=== PATIENT | female | born 1950 | race African-American/Black ===

== ENCOUNTER 2023-06-11 06:15 | Inpatient (IN) | payer OTHER ==
[2023-06-11] MEDS ORDERED: ACETAMINOPHEN INJECTION 100 ML IVPB ONE ×2 (08:29→18:24)
[2023-06-11] MEDS: ACETAMINOPHEN 1000 MG/100 ML BAG IVPB ONE (09:02)
[2023-06-11 09:11] LABS: BASO % 0.6 % (0-2.0); EOS % 3.5 % (0-4.5); HEMATOCRIT 22.9 % (32.4-45.2); HEMOGLOBIN 7.1 GM/dL (10.7-15.3); LYMPH % 20.7 % (8-40); MCH 30.9 pg (25.7-33.7); MCHC 30.9 g/dl (32.0-36.0); MEAN PLT VOLUME 8.8 fl (7.5-11.1); MONO % 5.5 % (3.8-10.2); NEUT % 69.7 % (42.8-82.8); PLATELET COUNT 437 10^3/uL (134-434); RBC 2.29 M/mm3 (3.60-5.2); RDW 19.8 % (11.6-15.6); WHITE BLOOD COUNT 13.5 K/mm3 (4.0-10.0)
[2023-06-11 09:11] LABS: VENOUS BASE EXCESS 4.8 mmol/L (-2-2); VENOUS O2 SATURATION 65.2 % (70-80); VENOUS PCO2 72.6 mmHg (38-52)
[2023-06-11 09:13] LABS: VENOUS PH 7.27 (7.310-7.410)
[2023-06-11 09:17] LABS: INR 1.32 (0.83-1.09); PROTHROMBIN TIME (PATIENT) 15.3 SEC (9.7-13.0)
[2023-06-11 09:20] LABS: ACTIVATED PTT 34.3 SECONDS (25.2-36.5)
[2023-06-11 09:36] LABS: CHLORIDE 110 mmol/L (98-107); POTASSIUM 5.3 mmol/L (3.5-5.1); SODIUM 146 mmol/L (136-145)
[2023-06-11 09:38] LABS: ALBUMIN 1.9 g/dl (3.4-5.0); ANION GAP -2 mmol/L (4-13); CALCIUM 7.9 mg/dL (8.5-10.1); CO2 37 mmol/L (21-32)
[2023-06-11 09:39] LABS: BLOOD UREA NITROGEN 51.1 mg/dL (7-18); GLUCOSE,RANDOM 180 mg/dL (74-106)
[2023-06-11 09:41] LABS: CREATININE 1.1 mg/dL (0.55-1.3); SGPT/ALT 262 U/L (13-61)
[2023-06-11 09:42] LABS: SGOT/AST 314 U/L (15-37)
[2023-06-11 09:43] LABS: BILIRUBIN,TOTAL 0.2 mg/dL (0.2-1); TOT PROT 7.4 g/dl (6.4-8.2)
[2023-06-11 09:44] LABS: ALK PHOS 94 U/L (45-117)
[2023-06-11] MEDS ORDERED: VANCOMYCIN/WATER 1250 MG 1,250 MG/250 ML BAG IVPB ONE (11:48)
[2023-06-11] MEDS ORDERED: CEFTRIAXONE 1 GM/50 ML BAG ONE (11:49)
[2023-06-11] MEDS: CEFTRIAXONE 1,000 MG in DEXTROSE 5%-WATER - 50 ML IVPB ONE (11:56)
[2023-06-11 12:12] LABS: EPI CELLS 20 /uL (0-25.1); HYALINE CASTS 0 /uL (0-3.1); URINE APPEARANCE TURBID; URINE BACTERIA >9,000 /uL (0-1359); URINE BILIRUBIN NEGATIVE (NEGATIVE); URINE COLOR YELLOW; URINE GLUCOSE (UA) NEGATIVE (NEGATIVE); URINE KETONE NEGATIVE (NEGATIVE); URINE LEUK ESTERASE 3+ (NEGATIVE); URINE NITRITE NEGATIVE (NEGATIVE); URINE PROTEIN 1+ (NEGATIVE); URINE UROBILINOGEN 0.2 mg/dL (0.2-1.0); URINE WBC 7366 /uL (0-25.8)
[2023-06-11] MEDS: VANCOMYCIN/WATER 1250 MG 1,250 MG/250 ML BAG IVPB ONE (12:22)
[2023-06-11 12:33] LABS: URINE RBC 87.5 /uL (0-23.9); YEAST PRESENT (NEGATIVE)
[2023-06-11] MEDS: SODIUM CHLORIDE 0.45% 1,000 ML IV SCH (14:31)
[2023-06-11] MEDS ORDERED: PIPERACILLIN/TAZOB 3.375 GM 3.375 GM/50 ML BAG IVPB ONE ×2 (14:32→18:25)
[2023-06-11] MEDS: PIPERACILLIN/TAZOB 3.375 GM 3.375 GM in DEXTROSE 5%-WATER - 50 ML IVPB SCH (14:35)
[2023-06-11] MEDS ORDERED: PIPERACILLIN/TAZOB 3.375 GM 3.375 GM in DEXTROSE 5%-WATER - 50 ML IVPB SCH (15:00)
[2023-06-11] MEDS: SODIUM CHLORIDE 1,000 ML IV STA ×3 (16:17→18:48)
[2023-06-11] MEDS: ACETAMINOPHEN 1000 MG/100 ML BAG IVPB PRN (18:29)
[2023-06-11] MEDS ORDERED: NOREPINEPHRINE BITARTRATE 4,000 MCG in DEXTROSE 5%-WATER - 496 ML IV SCH (19:45)
[2023-06-11] MEDS ORDERED: NOREPINEPHRINE BITARTRATE 4 MG/4 ML ML IV ONE (19:45)
[2023-06-11] MEDS: NOREPINEPHRINE BITARTRATE 4,000 MCG in DEXTROSE 5%-WATER - 496 ML IV SCH ×2 (19:59→21:00)
[2023-06-11 20:05] LABS: HEMATOCRIT 15.9 % (32.4-45.2); MCH 30.2 pg (25.7-33.7); MCHC 30.3 g/dl (32.0-36.0); MEAN CELL VOLUME 99.7 fl (80-96); MEAN PLT VOLUME 8.9 fl (7.5-11.1); PLATELET COUNT 248 10^3/uL (134-434); RBC 1.59 M/mm3 (3.60-5.2); RDW 19.6 % (11.6-15.6); WHITE BLOOD COUNT 7.5 K/mm3 (4.0-10.0)
[2023-06-11 20:11] LABS: HEMOGLOBIN 4.8 GM/dL (10.7-15.3)
[2023-06-11 20:23] LABS: CHLORIDE 117 mmol/L (98-107); POTASSIUM 4.5 mmol/L (3.5-5.1); SODIUM 149 mmol/L (136-145)
[2023-06-11 20:26] LABS: ANION GAP 1 mmol/L (4-13); BLOOD UREA NITROGEN 54.1 mg/dL (7-18); CO2 30 mmol/L (21-32); GLUCOSE,RANDOM 72 mg/dL (74-106); MAGNESIUM 2.2 mg/dL (1.8-2.4)
[2023-06-11 20:29] LABS: SGOT/AST 149 U/L (15-37); SGPT/ALT 151 U/L (13-61)
[2023-06-11 20:31] LABS: BILIRUBIN,TOTAL 0.2 mg/dL (0.2-1)
[2023-06-11 20:42] LABS: TOTAL IRON BINDING CAPACITY 112 ug/dL (250-450)
[2023-06-11 20:57] LABS: ALBUMIN 1.4 g/dl (3.4-5.0); ALK PHOS 54 U/L (45-117); CALCIUM 6.7 mg/dL (8.5-10.1); TOT PROT 5.3 g/dl (6.4-8.2)
[2023-06-11] MEDS: MIDAZOLAM HCL 2 MG/2 ML SINGLE DOSE VIAL IVPUSH ONE (21:00)
[2023-06-11] MEDS ORDERED: MIDAZOLAM HCL 2 MG/2 ML SINGLE DOSE VIAL ONE (21:20)
[2023-06-11] MEDS ORDERED: SODIUM CHLORIDE 0.45% 1,000 ML IV SCH (21:32)
[2023-06-11 21:40] LABS: ARTERIAL BLOOD GAS BASE EXCESS -0.2 mmol/L (-2-2); ARTERIAL BLOOD GAS pH 7.355 (7.350-7.450)
[2023-06-11 21:43] LABS: ALLENS TEST POSITIVE; PT'S TEMP 99.5; VENT MODE A/C
[2023-06-11 21:44] LABS: VENT RATE 20
[2023-06-11] MEDS: ALBUMIN HUMAN 5% 250 ML IV SOLUTION IV ONE (22:03)
[2023-06-11] MEDS: CHLORHEXIDINE GLUCONATE 4% CLEANSER FOR DECOLONIZATION TP SCH (22:05)
[2023-06-11] MEDS: MUPIROCIN 2% TOPICAL OINTMENT FOR DECOLONIZATION NS SCH (22:05)
[2023-06-11] MEDS: PANTOPRAZOLE SODIUM 40 MG VIAL IVPUSH SCH (23:30)
[2023-06-12 01:09] LABS: BASO % 0.4 % (0-2.0); EOS % 2.6 % (0-4.5); HEMATOCRIT 21.9 % (32.4-45.2); LYMPH % 17.6 % (8-40); MCH 30.7 pg (25.7-33.7); MCHC 31.8 g/dl (32.0-36.0); MEAN CELL VOLUME 96.7 fl (80-96); MEAN PLT VOLUME 9.1 fl (7.5-11.1); MONO % 5.6 % (3.8-10.2); NEUT % 73.8 % (42.8-82.8); PLATELET COUNT 277 10^3/uL (134-434); RBC 2.27 M/mm3 (3.60-5.2); WHITE BLOOD COUNT 8.6 K/mm3 (4.0-10.0)
[2023-06-12] MEDS: PIPERACILLIN/TAZOB 3.375 GM 3.375 GM in DEXTROSE 5%-WATER - 50 ML IVPB SCH (02:21)
[2023-06-12 07:11] LABS: BASO % 0.4 % (0-2.0); EOS % 3.6 % (0-4.5); HEMATOCRIT 21.1 % (32.4-45.2); MCH 30.6 pg (25.7-33.7); MCHC 31.7 g/dl (32.0-36.0); MEAN CELL VOLUME 96.6 fl (80-96); MEAN PLT VOLUME 9.2 fl (7.5-11.1); MONO % 6.2 % (3.8-10.2); NEUT % 73.8 % (42.8-82.8); PLATELET COUNT 261 10^3/uL (134-434); RBC 2.19 M/mm3 (3.60-5.2); RDW 19.3 % (11.6-15.6)
[2023-06-12 07:30] LABS: HEMOGLOBIN 6.7 GM/dL (10.7-15.3)
[2023-06-12 07:32] LABS: BLOOD UREA NITROGEN 43.2 mg/dL (7-18); CALCIUM 7.2 mg/dL (8.5-10.1); MAGNESIUM 2.2 mg/dL (1.8-2.4)
[2023-06-12 07:35] LABS: CREATININE 0.8 mg/dL (0.55-1.3); PHOSPHOROUS 2.3 mg/dL (2.5-4.9)
[2023-06-12 07:37] LABS: BILIRUBIN,TOTAL 0.4 mg/dL (0.2-1); TOT PROT 5.4 g/dl (6.4-8.2)
[2023-06-12 07:44] LABS: POTASSIUM 4.5 mmol/L (3.5-5.1)
[2023-06-12 08:33] LABS: ALBUMIN 1.8 g/dl (3.4-5.0)
[2023-06-12] MEDS: NAPH,MB-DB/K PH,MBDB POWDER PACKET PO ONE (08:36)
[2023-06-12] MEDS ORDERED: SODIUM CHLORIDE 0.45% 1,000 ML IV SCH (09:15)
[2023-06-12] MEDS: FERROUS SULFATE 220 MG/5 ML ELIXIR PO SCH (09:47)
[2023-06-12] MEDS ORDERED: ASPIRIN COATED 81 MG TABLET.EC PO SCH (10:00)
[2023-06-12] MEDS ORDERED: SODIUM HYPOCHLORITE 0.25%- 473 ML BULK BOTTLE TP SCH (10:00)
[2023-06-12] MEDS ORDERED: FERROUS SULFATE 220 MG/5 ML ELIXIR PO SCH (10:00)
[2023-06-12] MEDS: SODIUM HYPOCHLORITE 0.25%- 473 ML BULK BOTTLE TP SCH (10:14)
[2023-06-12] MEDS: DEXTROSE 5%-WATER - 1,000 ML IV SCH (13:53)
[2023-06-12 15:00] LABS: BASO % 0.4 % (0-2.0); EOS % 4.2 % (0-4.5); HEMATOCRIT 25.1 % (32.4-45.2); HEMOGLOBIN 8.3 GM/dL (10.7-15.3); LYMPH % 15.2 % (8-40); MCHC 33.1 g/dl (32.0-36.0); MEAN CELL VOLUME 93.6 fl (80-96); MEAN PLT VOLUME 9.1 fl (7.5-11.1); MONO % 4.3 % (3.8-10.2); NEUT % 75.9 % (42.8-82.8); PLATELET COUNT 276 10^3/uL (134-434); RBC 2.68 M/mm3 (3.60-5.2); WHITE BLOOD COUNT 8.6 K/mm3 (4.0-10.0)
[2023-06-12 15:30] LABS: POTASSIUM 4.3 mmol/L (3.5-5.1)
[2023-06-12 15:32] LABS: CALCIUM 7.3 mg/dL (8.5-10.1)
[2023-06-12 15:33] LABS: ALBUMIN 1.8 g/dl (3.4-5.0); BLOOD UREA NITROGEN 33.8 mg/dL (7-18)
[2023-06-12 15:36] LABS: CREATININE 0.7 mg/dL (0.55-1.3)
[2023-06-12 15:38] LABS: BILIRUBIN,TOTAL 0.5 mg/dL (0.2-1); TOT PROT 5.4 g/dl (6.4-8.2)
[2023-06-12] MEDS: AMINO ACIDS/PROTEIN HYDROLYS 30 ML LIQUID.PKT GT SCH (17:51)
[2023-06-12] MEDS: ASCORBIC ACID 500 MG TABLET (FP) GT SCH (21:08)
[2023-06-12] MEDS: FENTANYL CITRATE/PF 50 MCG/ML VIAL IVPUSH ONE (23:26)
[2023-06-13] MEDS: ACETAMINOPHEN 1000 MG/100 ML BAG IVPB ONE ×2 (06:00→14:37)
[2023-06-13] MEDS ORDERED: ACETAMINOPHEN INJECTION 100 ML IVPB ONE (06:08)
[2023-06-13 06:38] LABS: HEMATOCRIT 28.3 % (32.4-45.2); HEMOGLOBIN 9.3 GM/dL (10.7-15.3); MCH 30.8 pg (25.7-33.7); MEAN CELL VOLUME 93.4 fl (80-96); MEAN PLT VOLUME 9.2 fl (7.5-11.1); PLATELET COUNT 366 10^3/uL (134-434); RBC 3.03 M/mm3 (3.60-5.2); RDW 19.7 % (11.6-15.6); WHITE BLOOD COUNT 12.2 K/mm3 (4.0-10.0)
[2023-06-13 07:04] LABS: ALBUMIN 1.9 g/dl (3.4-5.0); CALCIUM 7.8 mg/dL (8.5-10.1)
[2023-06-13 07:05] LABS: MAGNESIUM 1.9 mg/dL (1.8-2.4)
[2023-06-13 07:07] LABS: CREATININE 0.6 mg/dL (0.55-1.3); PHOSPHOROUS 1.9 mg/dL (2.5-4.9)
[2023-06-13 07:09] LABS: BILIRUBIN,TOTAL 0.5 mg/dL (0.2-1); TOT PROT 5.8 g/dl (6.4-8.2)
[2023-06-13] MEDS: NAPH,MB-DB/K PH,MBDB POWDER PACKET PO SCH (08:07)
[2023-06-13] MEDS: MULTIVIT-MINERALS ORAL LIQUID GT SCH (09:12)
[2023-06-13] MEDS ORDERED: NAPH,MB-DB/K PH,MBDB POWDER PACKET PO SCH (10:00)
[2023-06-13] MEDS: MAGNESIUM SULF 50% (8.12 MEQ/2 ML-1 GM VIAL) IVPB ONE (11:44)
[2023-06-13] MEDS: VANCOMYCIN/WATER FOR INJ (PEG) 1,000 MG/200 ML BAG IVPB SCH (14:37)
[2023-06-13] MEDS ORDERED: CHLORHEXIDINE GLUCONATE 4% CLEANSER FOR DECOLONIZATION TP SCH (22:00)
[2023-06-13] MEDS ORDERED: MUPIROCIN 2% TOPICAL OINTMENT FOR DECOLONIZATION NS SCH (22:00)
[2023-06-13] MEDS: NAPH,MB-DB/K PH,MBDB POWDER PACKET GT SCH (22:27)
[2023-06-13] MEDS: PANTOPRAZOLE SODIUM 40 MG VIAL IVPUSH SCH (22:27)
[2023-06-13] MEDS: ASCORBIC ACID 500 MG TABLET (FP) GT SCH (22:27)
[2023-06-13] MEDS: ACETAMINOPHEN 1000 MG/100 ML BAG IVPB PRN (23:13)
[2023-06-14] MEDS: BACITRACIN ZINC 15 GM TUBE TOPICAL OINTMENT TP SCH ×2 (01:12→17:55)
[2023-06-14] MEDS: PIPERACILLIN/TAZOB 3.375 GM 3.375 GM in DEXTROSE 5%-WATER - 50 ML IVPB SCH (02:18)
[2023-06-14 08:15] LABS: BASO % 0.1 % (0-2.0); EOS % 2.2 % (0-4.5); HEMATOCRIT 25.6 % (32.4-45.2); HEMOGLOBIN 8.1 GM/dL (10.7-15.3); LYMPH % 8.2 % (8-40); MCH 29.9 pg (25.7-33.7); MCHC 31.8 g/dl (32.0-36.0); MEAN CELL VOLUME 94.1 fl (80-96); MEAN PLT VOLUME 8.8 fl (7.5-11.1); MONO % 3.8 % (3.8-10.2); NEUT % 85.7 % (42.8-82.8); PLATELET COUNT 319 10^3/uL (134-434); RBC 2.73 M/mm3 (3.60-5.2); RDW 19.1 % (11.6-15.6); WHITE BLOOD COUNT 12.7 K/mm3 (4.0-10.0)
[2023-06-14 08:26] LABS: POTASSIUM 4.1 mmol/L (3.5-5.1)
[2023-06-14 08:32] LABS: CALCIUM 7.8 mg/dL (8.5-10.1)
[2023-06-14 08:33] LABS: ALBUMIN 1.6 g/dl (3.4-5.0); BLOOD UREA NITROGEN 26.9 mg/dL (7-18); MAGNESIUM 2.4 mg/dL (1.8-2.4)
[2023-06-14 08:36] LABS: CREATININE 0.6 mg/dL (0.55-1.3); PHOSPHOROUS 2.5 mg/dL (2.5-4.9)
[2023-06-14 08:37] LABS: BILIRUBIN,TOTAL 0.4 mg/dL (0.2-1); TOT PROT 5.4 g/dl (6.4-8.2)
[2023-06-14] MEDS: AMINO ACIDS/PROTEIN HYDROLYS 30 ML LIQUID.PKT GT SCH (09:33)
[2023-06-14] MEDS: MULTIVIT-MINERALS ORAL LIQUID GT SCH (09:33)
[2023-06-14] MEDS: FERROUS SULFATE 220 MG/5 ML ELIXIR GT SCH (09:33)
[2023-06-14] MEDS: SODIUM HYPOCHLORITE 0.25%- 473 ML BULK BOTTLE TP SCH (11:21)
[2023-06-14] MEDS: VANCOMYCIN/WATER FOR INJ (PEG) 1,000 MG/200 ML BAG IVPB SCH (13:35)
[2023-06-14] MEDS: LACTATED RINGERS SOLUTION 1,000 ML/1,000 ML INFUS.BAG IV SCH (14:00)
[2023-06-14] MEDS: TIGECYCLINE 100 MG in DEXTROSE 5%-WATER - 100 ML IVPB ONE (14:39)
[2023-06-14] MEDS: ACETAMINOPHEN 1000 MG/100 ML BAG IVPB PRN (23:00)
[2023-06-15 08:54] LABS: BASO % 0.3 % (0-2.0); EOS % 2.1 % (0-4.5); HEMATOCRIT 25.3 % (32.4-45.2); HEMOGLOBIN 8.2 GM/dL (10.7-15.3); LYMPH % 8.5 % (8-40); MCH 30.5 pg (25.7-33.7); MCHC 32.5 g/dl (32.0-36.0); MEAN CELL VOLUME 94.1 fl (80-96); MEAN PLT VOLUME 8.8 fl (7.5-11.1); MONO % 4.1 % (3.8-10.2); PLATELET COUNT 325 10^3/uL (134-434); RBC 2.69 M/mm3 (3.60-5.2); RDW 19.6 % (11.6-15.6); WHITE BLOOD COUNT 12.9 K/mm3 (4.0-10.0)
[2023-06-15 09:04] LABS: POTASSIUM 4.3 mmol/L (3.5-5.1)
[2023-06-15] MEDS: TAMSULOSIN HCL 0.4 MG CAP PO SCH (09:21)
[2023-06-15] MEDS: PANTOPRAZOLE SODIUM 40 MG VIAL IVPUSH SCH (09:21)
[2023-06-15] MEDS: TIGECYCLINE 50 MG in DEXTROSE 5%-WATER - 100 ML IVPB SCH (09:22)
[2023-06-15 09:33] LABS: BLOOD UREA NITROGEN 28.8 mg/dL (7-18); CALCIUM 7.7 mg/dL (8.5-10.1)
[2023-06-15 09:36] LABS: CREATININE 0.5 mg/dL (0.55-1.3)
[2023-06-15] MEDS: ACETAMINOPHEN 1000 MG/100 ML BAG IVPB PRN (15:21)
[2023-06-16 14:07] VITALS: BMI 27.6
[2023-06-17 10:02] LABS: BASO % 0.3 % (0-2.0); EOS % 3.5 % (0-4.5); HEMATOCRIT 26.2 % (32.4-45.2); HEMOGLOBIN 8.4 GM/dL (10.7-15.3); LYMPH % 14.9 % (8-40); MCH 30.3 pg (25.7-33.7); MCHC 32.1 g/dl (32.0-36.0); MEAN CELL VOLUME 94.4 fl (80-96); MEAN PLT VOLUME 8.6 fl (7.5-11.1); MONO % 7.3 % (3.8-10.2); PLATELET COUNT 376 10^3/uL (134-434); RBC 2.77 M/mm3 (3.60-5.2); RDW 19.3 % (11.6-15.6)
[2023-06-17 10:20] LABS: POTASSIUM 4.7 mmol/L (3.5-5.1)
[2023-06-17 10:25] LABS: CALCIUM 7.9 mg/dL (8.5-10.1)
[2023-06-17 10:26] LABS: ALBUMIN 1.3 g/dl (3.4-5.0); BLOOD UREA NITROGEN 23.8 mg/dL (7-18)
[2023-06-17 10:29] LABS: CREATININE 0.4 mg/dL (0.55-1.3)
[2023-06-17 10:30] LABS: BILIRUBIN,TOTAL 0.2 mg/dL (0.2-1); TOT PROT 5.1 g/dl (6.4-8.2)
[2023-06-17] MEDS: CEFTRIAXONE 1 GM in DEXTROSE 5%-WATER - 50 ML IVPB SCH (13:30)
[2023-06-18 08:41] LABS: HEMATOCRIT 26.6 % (32.4-45.2); HEMOGLOBIN 8.8 GM/dL (10.7-15.3); MCH 31.6 pg (25.7-33.7); MCHC 33.2 g/dl (32.0-36.0); MEAN CELL VOLUME 95.2 fl (80-96); MEAN PLT VOLUME 8.5 fl (7.5-11.1); PLATELET COUNT 396 10^3/uL (134-434); RBC 2.79 M/mm3 (3.60-5.2); RDW 18.9 % (11.6-15.6); WHITE BLOOD COUNT 9.2 K/mm3 (4.0-10.0)
[2023-06-18 08:48] LABS: CALCIUM 8.2 mg/dL (8.5-10.1)
[2023-06-18 08:49] LABS: ALBUMIN 1.4 g/dl (3.4-5.0); BLOOD UREA NITROGEN 21.5 mg/dL (7-18)
[2023-06-18 08:52] LABS: CREATININE 0.4 mg/dL (0.55-1.3)
[2023-06-18 08:53] LABS: BILIRUBIN,TOTAL 0.2 mg/dL (0.2-1); TOT PROT 5.4 g/dl (6.4-8.2)
[2023-06-19 10:16] LABS: BASO % 0.4 % (0-2.0); EOS % 2.3 % (0-4.5); HEMOGLOBIN 8.7 GM/dL (10.7-15.3); LYMPH % 15.9 % (8-40); MCH 30.9 pg (25.7-33.7); MCHC 32.4 g/dl (32.0-36.0); MEAN CELL VOLUME 95.5 fl (80-96); MEAN PLT VOLUME 8.2 fl (7.5-11.1); MONO % 5.7 % (3.8-10.2); NEUT % 75.7 % (42.8-82.8); PLATELET COUNT 376 10^3/uL (134-434); RBC 2.83 M/mm3 (3.60-5.2); RDW 19.1 % (11.6-15.6); WHITE BLOOD COUNT 9.6 K/mm3 (4.0-10.0)
[2023-06-19 10:32] LABS: POTASSIUM 4.8 mmol/L (3.5-5.1)
[2023-06-19 10:33] LABS: CALCIUM 7.9 mg/dL (8.5-10.1)
[2023-06-19 10:37] LABS: CREATININE 0.4 mg/dL (0.55-1.3)
[2023-06-20 18:30] VITALS: BP 144/59; PULSE 74; TEMP 98.3
[2023-06-20 20:16] VITALS: RESP 21
== END 2023-06-20 21:06 | DRG 870 ==
LOC: JER 06:15 → JERBED 11:55 → JICU 20:27 → J5S 06-13 18:08
PROVIDERS: ADMIT Internal Medicine; ATTEND Internal Medicine
PROC: 5A1955Z Respiratory Ventilation, Greater than 96 Consecutive Hours (ICD-10-PCS; principal; 2023-06-11)
PROC: 30233N1 Transfusion of Nonautologous Red Blood Cells into Peripheral Vein, Percutaneous Approach (ICD-10-PCS; 2023-06-11)
DX: A41.89 Other specified sepsis (principal); J69.0 Pneumonitis due to inhalation of food and vomit; L89.154 Pressure ulcer of sacral region, stage 4; R65.21 Severe sepsis with septic shock; N39.0 Urinary tract infection, site not specified; J96.10 Chronic respiratory failure, unspecified whether with hypoxia or hypercapnia; E87.0 Hyperosmolality and hypernatremia; N17.9 Acute kidney failure, unspecified; R47.01 Aphasia; I10 Essential (primary) hypertension; E78.5 Hyperlipidemia, unspecified; R33.9 Retention of urine, unspecified; D63.8 Anemia in other chronic diseases classified elsewhere; E87.5 Hyperkalemia; Z68.28 Body mass index [BMI] 28.0-28.9, adult; B96.1 Klebsiella pneumoniae [K. pneumoniae] as the cause of diseases classified elsewhere; B96.5 Pseudomonas (aeruginosa) (mallei) (pseudomallei) as the cause of diseases classified elsewhere; B96.4 Proteus (mirabilis) (morganii) as the cause of diseases classified elsewhere; B96.20 Unspecified Escherichia coli [E. coli] as the cause of diseases classified elsewhere; B95.2 Enterococcus as the cause of diseases classified elsewhere; Z93.1 Gastrostomy status; Z99.81 Dependence on supplemental oxygen; Z86.73 Personal history of transient ischemic attack (TIA), and cerebral infarction without residual deficits; Z93.0 Tracheostomy status; Z74.01 Bed confinement status
CPT/HCPCS: 0241U-QW; 36415; 36430; 36600; 71045-TC-FY; 80048; 80053; 81003; 82272; 82607; 82728; 82803; 82962; 83550; 83605; 83735; 84100; 84484; 85025; 85027; 85610; 85730; 86850; 86900; 86901; 86922; 87040; 87070; 87081; 87086; 87186; 87205; 87635; 93005; 93010; 94002; 99291; J0131; J3243; P9038; P9058

== ENCOUNTER 2023-06-24 06:30 | Inpatient (IN) | payer OTHER ==
[2023-06-24] MEDS ORDERED: PIPERACILLIN/TAZOB 4.5 GM 4.5 GM/100 ML BAG IVPB ONE (06:54)
[2023-06-24 06:57] LABS: VENOUS BASE EXCESS -2.7 mmol/L (-2-2); VENOUS O2 SATURATION 90.5 % (70-80)
[2023-06-24 06:59] LABS: BASO % 0.5 % (0-2.0); EOS % 0.6 % (0-4.5); HEMATOCRIT 30.6 % (32.4-45.2); HEMOGLOBIN 9.3 GM/dL (10.7-15.3); LYMPH % 13.7 % (8-40); MCHC 30.2 g/dl (32.0-36.0); MEAN CELL VOLUME 102.7 fl (80-96); MEAN PLT VOLUME 7.5 fl (7.5-11.1); MONO % 4.3 % (3.8-10.2); NEUT % 80.9 % (42.8-82.8); PLATELET COUNT 514 10^3/uL (134-434); RBC 2.98 M/mm3 (3.60-5.2); RDW 20.3 % (11.6-15.6); VENOUS PCO2 127.3 mmHg (38-52); VENOUS PH 7.001 (7.310-7.410); WHITE BLOOD COUNT 17.8 K/mm3 (4.0-10.0)
[2023-06-24] MEDS: PIPERACILLIN/TAZOB 4.5 GM 4.5 GM in DEXTROSE 5%-WATER 100 ML IVPB ONE (07:00)
[2023-06-24] MEDS: LACTATED RINGERS SOLUTION 1000 ML INFUS.BAG IV ONE (07:00)
[2023-06-24] MEDS: NOREPINEPHRINE BITARTRATE 16,000 MCG in SODIUM CHLORIDE 484 ML IV SCH (07:00)
[2023-06-24 07:03] LABS: EPI CELLS 6 /uL (0-25.1); HYALINE CASTS 2 /uL (0-3.1); URINE APPEARANCE CLOUDY; URINE BACTERIA 9 /uL (0-1359); URINE BILIRUBIN NEGATIVE (NEGATIVE); URINE COLOR YELLOW; URINE GLUCOSE (UA) NEGATIVE (NEGATIVE); URINE KETONE NEGATIVE (NEGATIVE); URINE LEUK ESTERASE 3+ (NEGATIVE); URINE NITRITE NEGATIVE (NEGATIVE); URINE PROTEIN NEGATIVE (NEGATIVE); URINE UROBILINOGEN 0.2 mg/dL (0.2-1.0); URINE WBC 1446 /uL (0-25.8)
[2023-06-24 07:18] LABS: INR 1.34 (0.83-1.09)
[2023-06-24 07:20] LABS: ACTIVATED PTT 29.9 SECONDS (25.2-36.5)
[2023-06-24 07:28] LABS: LACTIC ACID 3.9 mmol/L (0.4-2.0)
[2023-06-24] MEDS ORDERED: NOREPINEPHRINE 0.9 % NACL 8 MG/250 ML BAG IVPB ONE (08:10)
[2023-06-24] MEDS ORDERED: VANCOMYCIN 1 GRAM (PRE-DOCKED) 1,000 MG/250 ML BAG IVPB ONE (08:11)
[2023-06-24] MEDS: VANCOMYCIN 1,000 MG in DEXTROSE 5%-WATER - 250 ML IVPB ONE (08:30)
[2023-06-24] MEDS: NOREPINEPHRINE 0.9 % NACL 8 MG/250 ML BAG IVPB SCH (08:30)
[2023-06-24 08:38] LABS: YEAST NEGATIVE (NEGATIVE)
[2023-06-24 09:13] LABS: VENOUS BASE EXCESS 1.5 mmol/L (-2-2); VENOUS O2 SATURATION 44.3 % (70-80)
[2023-06-24 09:16] LABS: VENOUS PCO2 82.5 mmHg (38-52); VENOUS PH 7.198 (7.310-7.410)
[2023-06-24 09:31] LABS: CHLORIDE 106 mmol/L (98-107); SODIUM 139 mmol/L (136-145)
[2023-06-24 09:33] LABS: ALBUMIN 1.5 g/dl (3.4-5.0); BLOOD UREA NITROGEN 34.4 mg/dL (7-18); CALCIUM 8.4 mg/dL (8.5-10.1); CO2 32 mmol/L (21-32); GLUCOSE,RANDOM 156 mg/dL (74-106)
[2023-06-24 09:36] LABS: CREATININE 0.7 mg/dL (0.55-1.3); SGOT/AST 95 U/L (15-37)
[2023-06-24 09:38] LABS: BILIRUBIN,TOTAL 0.4 mg/dL (0.2-1); TOT PROT 6.6 g/dl (6.4-8.2)
[2023-06-24 09:39] LABS: ALK PHOS 128 U/L (45-117)
[2023-06-24 09:43] LABS: ANION GAP 2 mmol/L (4-13); POTASSIUM 8.9 mmol/L (3.5-5.1); SGPT/ALT 48 U/L (13-61)
[2023-06-24 09:56] LABS: LACTIC ACID 2.8 mmol/L (0.4-2.0)
[2023-06-24 11:15] LABS: CHLORIDE 106 mmol/L (98-107); SODIUM 140 mmol/L (136-145)
[2023-06-24 11:18] LABS: BLOOD UREA NITROGEN 40.6 mg/dL (7-18); CALCIUM 8.3 mg/dL (8.5-10.1); CO2 32 mmol/L (21-32); GLUCOSE,RANDOM 155 mg/dL (74-106)
[2023-06-24 11:22] LABS: CREATININE 0.7 mg/dL (0.55-1.3)
[2023-06-24 11:41] LABS: ANION GAP 2 mmol/L (4-13); POTASSIUM 6.1 mmol/L (3.5-5.1)
[2023-06-24] MEDS ORDERED: INSULIN (NOVOLOG) ASPART 100 UNITS/ML 10ML VIAL ONE (11:49)
[2023-06-24] MEDS ORDERED: ALBUTEROL SO4 0.083% IH SOL 2.5 MG/3 ML VIAL.NEB. NEB ONE (11:49)
[2023-06-24] MEDS: CEFTRIAXONE 1 GM in DEXTROSE 5%-WATER - 50 ML IVPB SCH (11:51)
[2023-06-24] MEDS: MEROPENEM 1 GM in DEXTROSE 5%-WATER 100 ML IVPB SCH (11:52)
[2023-06-24] MEDS: SODIUM CHLORIDE 1,000 ML IV STA (11:52)
[2023-06-24] MEDS ORDERED: DEXTROSE 50%-WATER 25 GM/50 ML DISP.SYRIN ONE (12:22)
[2023-06-24] MEDS: INSULIN REGULAR HUMAN 100 UNITS/ML *VIAL IVPUSH ONE (12:26)
[2023-06-24] MEDS: DEXTROSE 50%-WATER - 25 GM/50 ML VIAL IVPUSH ONE (12:28)
[2023-06-24] MEDS: CALCIUM GLUC IN NACL, ISO-OSM 1 GM/50 ML BAG IVPB ONE (12:28)
[2023-06-24] MEDS ORDERED: TRIMETHOBENZAMIDE HCL 200MG/2ML INJ IM PRN (12:34)
[2023-06-24] MEDS ORDERED: INSULIN REGULAR HUMAN 100 UNITS/ML *VIAL ONE (12:56)
[2023-06-24] MEDS: ALBUTEROL SO4 0.083% IH SOL 2.5 MG/3 ML VIAL.NEB. NEB SCH (13:00)
[2023-06-24 13:22] LABS: ARTERIAL BLD GAS O2 SATURATION 98.5 % (95-98); ARTERIAL BLOOD GAS PO2 134.7 mmHg (80-100); ARTERIAL BLOOD GAS pH 7.357 (7.350-7.450)
[2023-06-24 13:23] LABS: ALLENS TEST POSITIVE
[2023-06-24 13:24] LABS: VENT MODE A/C; VENT RATE 26
[2023-06-24] MEDS: SODIUM CHLORIDE 0.45% 1,000 ML IV SCH (14:14)
[2023-06-24] MEDS: AMINO ACIDS/PROTEIN HYDROLYS 30 ML LIQUID.PKT GT SCH (16:41)
[2023-06-24] MEDS: PIPERACILLIN/TAZOB 3.375 GM 3.375 GM in DEXTROSE 5%-WATER - 50 ML IVPB SCH (17:19)
[2023-06-24] MEDS ORDERED: PIPERACILLIN/TAZOB 3.375 GM 3.375 GM in DEXTROSE 5%-WATER - 50 ML IVPB SCH (18:00)
[2023-06-24] MEDS: CHLORHEXIDINE GLUCONATE 4% CLEANSER FOR DECOLONIZATION TP SCH (21:24)
[2023-06-24] MEDS: POLYETHYLENE GLYCOL (HEALTHYLAX) 3350 17 GM PACKET GT SCH (21:24)
[2023-06-24] MEDS: BACITRACIN ZINC 15 GM TUBE TOPICAL OINTMENT TP SCH (21:24)
[2023-06-24] MEDS: MUPIROCIN 2% TOPICAL OINTMENT FOR DECOLONIZATION NS SCH (21:25)
[2023-06-24] MEDS ORDERED: SENNOSIDES 8.6MG TABLET (FP) PO SCH (22:00)
[2023-06-24] MEDS ORDERED: MEROPENEM 1 GM in DEXTROSE 5%-WATER 100 ML IVPB SCH (22:00)
[2023-06-25] MEDS: ACETAMINOPHEN 1000 MG/100 ML BAG IVPB PRN (00:33)
[2023-06-25] MEDS: SODIUM CHLORIDE 1,000 ML IV SCH (01:45)
[2023-06-25 06:50] LABS: BASO % 0.5 % (0-2.0); EOS % 0.7 % (0-4.5); HEMATOCRIT 26.6 % (32.4-45.2); HEMOGLOBIN 8.5 GM/dL (10.7-15.3); LYMPH % 12.8 % (8-40); MCH 30.6 pg (25.7-33.7); MEAN CELL VOLUME 95.6 fl (80-96); MEAN PLT VOLUME 7.8 fl (7.5-11.1); MONO % 5.7 % (3.8-10.2); NEUT % 80.3 % (42.8-82.8); PLATELET COUNT 399 10^3/uL (134-434); RBC 2.79 M/mm3 (3.60-5.2); RDW 19.4 % (11.6-15.6); WHITE BLOOD COUNT 12.8 K/mm3 (4.0-10.0)
[2023-06-25 07:02] LABS: POTASSIUM 4.6 mmol/L (3.5-5.1)
[2023-06-25 07:07] LABS: BLOOD UREA NITROGEN 50.5 mg/dL (7-18); CALCIUM 8.1 mg/dL (8.5-10.1); MAGNESIUM 1.9 mg/dL (1.8-2.4)
[2023-06-25 07:08] LABS: ALBUMIN 1.5 g/dl (3.4-5.0)
[2023-06-25 07:10] LABS: CREATININE 1.2 mg/dL (0.55-1.3); PHOSPHOROUS 2.4 mg/dL (2.5-4.9)
[2023-06-25 07:12] LABS: BILIRUBIN,TOTAL 0.5 mg/dL (0.2-1); TOT PROT 5.5 g/dl (6.4-8.2)
[2023-06-25] MEDS ORDERED: DEXTROSE 50%-WATER 25 GM/50 ML DISP.SYRIN ONE (07:28)
[2023-06-25] MEDS: DEXTROSE 50%-WATER - 25 GM/50 ML VIAL IVPUSH ONE ×2 (07:35→12:49)
[2023-06-25] MEDS: DEXTROSE 5%-NORMAL SALINE 1,000 ML IV SCH (08:54)
[2023-06-25] MEDS: SODIUM PHOSPHATE - 30 MM in DEXTROSE 5%-WATER - 250 ML IVPB ONE ×2 (08:58→12:50)
[2023-06-25] MEDS: ENOXAPARIN NA (PORCINE) 40 MG/0.4 ML DISP.SYRIN SQ SCH (09:00)
[2023-06-25] MEDS: SODIUM HYPOCHLORITE 0.25%- 473 ML BULK BOTTLE TP SCH (09:01)
[2023-06-25] MEDS: PANTOPRAZOLE SODIUM 40 MG VIAL IVPUSH SCH (09:01)
[2023-06-25] MEDS: ALBUTEROL SO4 2.5/IPRATROPIUM 0.5 INH SOL 3 ML VIAL.NEB. NEB SCH (10:30)
[2023-06-26] MEDS ORDERED: TRIMETHOBENZAMIDE HCL 200MG/2ML INJ IM PRN (18:09)
[2023-06-26] MEDS: DEXTROSE 5%-NORMAL SALINE 1,000 ML IV SCH (18:41)
[2023-06-26] MEDS: SODIUM CHLORIDE 0.45% 1,000 ML IV SCH (18:45)
[2023-06-26] MEDS: POLYETHYLENE GLYCOL (HEALTHYLAX) 3350 17 GM PACKET GT SCH (21:17)
[2023-06-26] MEDS: ACETAMINOPHEN 650 MG/20.3 ML ORAL SOLUTION (CUPS) GT PRN (21:45)
[2023-06-26] MEDS: BACITRACIN ZINC 15 GM TUBE TOPICAL OINTMENT TP SCH (21:49)
[2023-06-26] MEDS ORDERED: CHLORHEXIDINE GLUCONATE 4% CLEANSER FOR DECOLONIZATION TP SCH (22:00)
[2023-06-26] MEDS ORDERED: MUPIROCIN 2% TOPICAL OINTMENT FOR DECOLONIZATION NS SCH (22:00)
[2023-06-27] MEDS: PIPERACILLIN/TAZOB 3.375 GM 3.375 GM in DEXTROSE 5%-WATER - 50 ML IVPB SCH (03:27)
[2023-06-27 08:08] LABS: BASO % 0.9 % (0-2.0); EOS % 3.7 % (0-4.5); HEMATOCRIT 25.5 % (32.4-45.2); HEMOGLOBIN 8.2 GM/dL (10.7-15.3); LYMPH % 14.4 % (8-40); MCH 31.6 pg (25.7-33.7); MCHC 32.3 g/dl (32.0-36.0); MEAN CELL VOLUME 97.6 fl (80-96); MEAN PLT VOLUME 7.5 fl (7.5-11.1); MONO % 7.2 % (3.8-10.2); NEUT % 73.8 % (42.8-82.8); PLATELET COUNT 336 10^3/uL (134-434); RBC 2.61 M/mm3 (3.60-5.2); RDW 19.7 % (11.6-15.6); WHITE BLOOD COUNT 7.7 K/mm3 (4.0-10.0)
[2023-06-27 08:21] LABS: POTASSIUM 4.2 mmol/L (3.5-5.1)
[2023-06-27 08:23] LABS: CALCIUM 7.2 mg/dL (8.5-10.1)
[2023-06-27 08:24] LABS: ALBUMIN 1.3 g/dl (3.4-5.0); BLOOD UREA NITROGEN 38.4 mg/dL (7-18)
[2023-06-27 08:27] LABS: CREATININE 1.6 mg/dL (0.55-1.3)
[2023-06-27 08:28] LABS: BILIRUBIN,TOTAL 0.7 mg/dL (0.2-1); TOT PROT 5.1 g/dl (6.4-8.2)
[2023-06-27] MEDS: ALBUTEROL SO4 2.5/IPRATROPIUM 0.5 INH SOL 3 ML VIAL.NEB. NEB SCH (10:45)
[2023-06-27] MEDS: AMINO ACIDS/PROTEIN HYDROLYS 30 ML LIQUID.PKT GT SCH (11:16)
[2023-06-27] MEDS: PANTOPRAZOLE SODIUM 40 MG VIAL IVPUSH SCH (11:17)
[2023-06-27] MEDS: ENOXAPARIN NA (PORCINE) 40 MG/0.4 ML DISP.SYRIN SQ SCH (11:17)
[2023-06-27] MEDS: SODIUM HYPOCHLORITE 0.25%- 473 ML BULK BOTTLE TP SCH (11:17)
[2023-06-27 11:31] VITALS: RESP 18
[2023-06-27 13:58] VITALS: BMI 22.0
[2023-06-27] MEDS ORDERED: SODIUM CHLORIDE 0.45% 1,000 ML IV SCH (14:30)
[2023-06-27 15:51] VITALS: BP 151/50; PULSE 95; TEMP 99.4
[2023-06-27] MEDS ORDERED: DOXYCYCLINE HYCLATE 100 MG CAPSULE PO SCH (18:00)
== END 2023-06-27 16:32 | DRG 871 ==
LOC: JER 06:30 → JICU 07:22 → J5S 06-26 17:55
PROVIDERS: ADMIT Internal Medicine; ATTEND Internal Medicine
PROC: 5A1945Z Respiratory Ventilation, 24-96 Consecutive Hours (ICD-10-PCS; principal; 2023-06-24)
DX: A41.89 Other specified sepsis (principal); I46.9 Cardiac arrest, cause unspecified; J69.0 Pneumonitis due to inhalation of food and vomit; R65.21 Severe sepsis with septic shock; L89.154 Pressure ulcer of sacral region, stage 4; G93.1 Anoxic brain damage, not elsewhere classified; N39.0 Urinary tract infection, site not specified; E87.20 Acidosis, unspecified; J96.10 Chronic respiratory failure, unspecified whether with hypoxia or hypercapnia; N17.9 Acute kidney failure, unspecified; I10 Essential (primary) hypertension; E78.5 Hyperlipidemia, unspecified; E87.5 Hyperkalemia; L89.612 Pressure ulcer of right heel, stage 2
CPT/HCPCS: 0241U-QW; 36415; 36600; 71045-TC-FY; 74018-TC-FY; 80048; 80053; 81003; 82550; 82803; 82962; 83605; 83735; 84100; 84132; 84484; 85025; 85610; 85730; 86850; 86900; 86901; 87040; 87070; 87077; 87086; 87186; 87205; 93005; 93010; 94002; 94640; 99285-25; J0131

== ENCOUNTER 2023-08-08 10:25 | Inpatient (IN) | payer OTHER ==
[2023-08-08 11:25] LABS: BASO % 0.7 % (0-2.0); EOS % 2.6 % (0-4.5); HEMATOCRIT 20.7 % (32.4-45.2); LYMPH % 8.7 % (8-40); MCH 30.4 pg (25.7-33.7); MCHC 30.8 g/dl (32.0-36.0); MEAN CELL VOLUME 98.6 fl (80-96); MEAN PLT VOLUME 7.7 fl (7.5-11.1); MONO % 3.1 % (3.8-10.2); NEUT % 84.9 % (42.8-82.8); PLATELET COUNT 583 10^3/uL (134-434); RDW 16.2 % (11.6-15.6); WHITE BLOOD COUNT 15.4 K/mm3 (4.0-10.0)
[2023-08-08 11:27] LABS: HEMOGLOBIN 6.4 GM/dL (10.7-15.3)
[2023-08-08 11:33] LABS: VENOUS BASE EXCESS 6.2 mmol/L (-2-2); VENOUS O2 SATURATION 74.3 % (70-80); VENOUS PCO2 44.5 mmHg (38-52); VENOUS PH 7.456 (7.310-7.410)
[2023-08-08 11:40] LABS: INR 1.27 (0.83-1.09); PROTHROMBIN TIME (PATIENT) 14.5 SEC (9.7-13.0)
[2023-08-08 11:43] LABS: ACTIVATED PTT 24.1 SECONDS (25.2-36.5)
[2023-08-08] MEDS ORDERED: ACETAMINOPHEN INJECTION 100 ML IVPB ONE (11:45)
[2023-08-08] MEDS ORDERED: VANCOMYCIN 1 GRAM (PRE-DOCKED) 1,000 MG/250 ML BAG IVPB ONE (11:46)
[2023-08-08] MEDS: VANCOMYCIN 1,000 MG in DEXTROSE 5%-WATER - 250 ML IVPB ONE (11:48)
[2023-08-08] MEDS: SODIUM CHLORIDE 0.9% 1000 ML INFUS.BAG IV ONE ×2 (11:48→12:52)
[2023-08-08] MEDS: ACETAMINOPHEN 1000 MG/100 ML BAG IVPB ONE (11:48)
[2023-08-08 12:01] LABS: POTASSIUM 4.1 mmol/L (3.5-5.1)
[2023-08-08 12:03] LABS: ALBUMIN 1.6 g/dl (3.4-5.0); BLOOD UREA NITROGEN 54.3 mg/dL (7-18); CALCIUM 8.7 mg/dL (8.5-10.1)
[2023-08-08 12:07] LABS: CREATININE 0.8 mg/dL (0.55-1.3)
[2023-08-08 12:08] LABS: BILIRUBIN,TOTAL 0.2 mg/dL (0.2-1); TOT PROT 6.9 g/dl (6.4-8.2)
[2023-08-08 12:37] LABS: EPI CELLS 13 /uL (0-25.1); HYALINE CASTS 4 /uL (0-3.1); URINE APPEARANCE CLEAR; URINE BACTERIA 132 /uL (0-1359); URINE BILIRUBIN NEGATIVE (NEGATIVE); URINE COLOR ORANGE; URINE GLUCOSE (UA) NEGATIVE (NEGATIVE); URINE KETONE NEGATIVE (NEGATIVE); URINE LEUK ESTERASE 2+ (NEGATIVE); URINE NITRITE NEGATIVE (NEGATIVE); URINE PROTEIN 2+ (NEGATIVE); URINE RBC 3251 /uL (0-23.9); URINE UROBILINOGEN 0.2 mg/dL (0.2-1.0); URINE WBC 577 /uL (0-25.8)
[2023-08-08] MEDS ORDERED: CEFEPIME HCL/D5W 1 GM/50 ML BAG IVPB ONE (12:50)
[2023-08-08] MEDS ORDERED: CEFEPIME 1 GM/100 ML BAG IVPB ONE ×2 (13:17→14:05)
[2023-08-08] MEDS: CEFEPIME 1 GM in DEXTROSE 5%-WATER 100 ML IVPB ONE (14:44)
[2023-08-08] MEDS ORDERED: MORPHINE SULFATE/0.9% NACL/PF 100 MG/100 ML BAG ONE (16:34)
[2023-08-08] MEDS: MORPHINE SULFATE/0.9% NACL/PF 100 MG/100 ML BAG IVPB SCH (16:36)
[2023-08-08] MEDS: SCOPOLAMINE HYDROBROMIDE 1 PATCH PATCH.TD72 TD SCH (16:37)
[2023-08-08] MEDS: SODIUM CHLORIDE 0.9% 500 ML INFUS.BAG IV ONE (16:45)
[2023-08-08 20:07] VITALS: RESP 20
[2023-08-08 21:59] VITALS: BMI 23.3
[2023-08-09] MEDS: ACETAMINOPHEN 1000 MG/100 ML BAG IVPB ONE ×2 (13:06→13:16)
[2023-08-09] MEDS: ACETAMINOPHEN 650 MG/20.3 ML ORAL SOLUTION (CUPS) GT ONE (13:36)
[2023-08-09] MEDS: MORPHINE SULFATE/0.9% NACL/PF 100 MG/100 ML BAG IVPB SCH (15:14)
[2023-08-09 18:47] VITALS: BP 107/56; PULSE 102; TEMP 100.3
[2023-08-09] MEDS ORDERED: ACETAMINOPHEN 650 MG/20.3 ML ORAL SOLUTION (CUPS) GT PRN (18:52)
== END 2023-08-10 | disposition expired | DRG 871 ==
LOC: JER 10:25 → JERBED 17:23 → J5S 21:12
PROVIDERS: ADMIT Internal Medicine; ATTEND Internal Medicine
PROC: 5A1945Z Respiratory Ventilation, 24-96 Consecutive Hours (ICD-10-PCS; principal; 2023-08-08)
DX: A41.9 Sepsis, unspecified organism (principal); J18.9 Pneumonia, unspecified organism; R65.21 Severe sepsis with septic shock; J96.10 Chronic respiratory failure, unspecified whether with hypoxia or hypercapnia; Z99.11 Dependence on respirator [ventilator] status; G93.1 Anoxic brain damage, not elsewhere classified; I10 Essential (primary) hypertension; E78.5 Hyperlipidemia, unspecified; D64.9 Anemia, unspecified; Z93.1 Gastrostomy status; Z93.0 Tracheostomy status; N93.9 Abnormal uterine and vaginal bleeding, unspecified
CPT/HCPCS: 0241U-QW; 36415; 36430; 71045-TC-FY; 80053; 81003; 82272; 82803; 83605; 84484; 85025; 85610; 85730; 86922; 87040; 87086; 87324; 87449; 93005; 93010; 94002; 99285-25; J0131; P9058